=== PATIENT | female | born 1960 | race Caucasian/White ===

== ENCOUNTER 2020-09-28 04:58 | Emergency (ER) | payer OTHER, SELFPAY ==
--- NOTE | ~2020-09-28 | XR_ITS ---
EXAMINATION: XR knee RT 3V DATE: 09/28/2020 05:46 INDICATION: Right knee pain TECHNIQUE: Three views of the right knee were obtained. COMPARISON: None. FINDINGS: Alignment is normal. No fracture or osteochondral lesion. Joint spaces are normal with no e rosions. No joint effusion/synovitis. Soft tissues are unremarkable. IMPRESSION: 1. No acute osseous abnormality. Reviewed, dictated and finalized at location A.
[2020-09-28 04:59] VITALS: BP 154/94; PULSE 80; RESP 19; TEMP 36.6; O2SAT 100
[2020-09-28 05:22] VITALS: BP 136/91; PULSE 74; RESP 18; TEMP 36.8; O2SAT 98
--- NOTE | 2020-09-28 05:58 | ED.GENADULT ---
HPI - General Adult General Chief complaint: Extremity Injury, Lower Stated complaint: right knee pain and swelling Time Seen by Provider: 09/28/20 05:50 History of Present Illness HPI narrative: Patient 60-year-old female presents the emergency department with chief complaint of right knee pain. The patient reports she has been having chronic pain in her right knee over the last 2 weeks has become worse. The patient states that she has swelling in her right knee and reports that she has popping and grinding in her knee Related Data Home Medications Medication Instructions Recorded Confirmed acetaminophen 09/28/20 amoxicillin-pot clavulanate tablet 09/28/20 fluticasone propionate INTRANASAL 09/28/20 permethrin applic TOPICAL 09/28/20 Allergies Allergy/AdvReac Type Severity Reaction Status Date / Time No Known Allergies Allergy Verified 09/28/20 05:29 Review of Systems Review of Systems: Narrative: A 10 system review of systems was completed on the patient and is negative except for what is stated in the HPI. Nursing and ancillary documentation was reviewed. Exam Narrative: Exam Narrative: GENERAL: Well-appearing, well-nourished, and in no acute distress. HEAD: Normocephalic, atraumatic. EYES: PERRLA and EOMI. ENT: Nares clear, no rhinorrhea or epistaxis. Mucous membranes moist. NECK: Supple. CHEST: Clear to auscultation. No respiratory distress. HEART: Regular rate and rhythm. No murmur heard. Normal peripheral pulses. ABDOMEN: Soft, nontender, nondistended, normal active bowel sounds. EXTREMITIES: Normal range of motion. No edema. There is tenderness to palpation of the right knee SKIN: Warm, dry, no rash. NEURO: No focal deficits. Alert and oriented x3. PSYCH: Normal mood and affect. Course Vital Signs Vital signs: Vital Signs Temperature 36.6 C 09/28/20 04:59 Pulse Rate 80 09/28/20 04:59 Respiratory Rate 19 09/28/20 04:59 Blood Pressure 154/94 H 09/28/20 04:59 Pulse Oximetry 100 09/28/20 04:59 Temperature 36.8 C 09/28/20 05:22 Pulse Rate 74 09/28/20 05:22 Respiratory Rate 18 09/28/20 05:22 Blood Pressure 136/91 H 09/28/20 05:22 Pulse Oximetry 98 09/28/20 05:22 Medical Decision Making Vital Signs Vital Signs: Vital Signs Temperature 36.6 C 09/28/20 04:59 Pulse Rate 80 09/28/20 04:59 Respiratory Rate 19 09/28/20 04:59 Blood Pressure 154/94 H 09/28/20 04:59 Pulse Oximetry 100 09/28/20 04:59 Temperature 36.8 C 09/28/20 05:22 Pulse Rate 74 09/28/20 05:22 Respiratory Rate 18 09/28/20 05:22 Blood Pressure 136/91 H 09/28/20 05:22 Pulse Oximetry 98 09/28/20 05:22 Discharge Plan Discharge Clinical Impression: Internal derangement of right knee Patient Disposition: Home, Self-Care Condition: Stable Instructions: Antibiotic Form, Knee Pain (ED), Knee Immobilizer (ED) Prescriptions: New meloxicam 15 mg tablet 15 mg PO DAILY Qty: 20 RF: 0 No Action permethrin 5 % cream TOPICAL RF: 0 acetaminophen 500 mg tablet RF: 0 fluticasone propionate 50 mcg/actuation spray,suspension INTRANASAL RF: 0 amoxicillin-pot clavulanate 875-125 mg tablet RF: 0 Follow-up/Referrals: Uyen,MARLYN Montejo [Primary Care Provider] - Jose Monsalve MD [Physician] - Time of Disposition: 06:03
[2020-09-28] MEDS: MELOXICAM 7.5 MG TABLET 15 MG PO (06:36)
[2020-09-28 06:47] VITALS: BP 129/87; PULSE 92; RESP 18; O2SAT 98
--- NOTE | 2020-09-28 06:51 | PC.NURSE ---
pt refusing knee immobilizer and states I just want my medications
== END 2020-09-28 06:35 | disposition home or self-care (01) ==
PROVIDERS: Emergency Provider Emergency Medicine; PCP Physician Assistant
DX: M23.91 Unspecified internal derangement of right knee (principal)
CPT/HCPCS: 73562; 99283; A9270

== ENCOUNTER 2021-12-29 14:28 | Emergency (ER) | payer OTHER, SELFPAY ==
--- NOTE | ~2021-12-29 | CT_ITS ---
EXAMINATION: CT abdomen pelvis w con DATE: 12/29/2021 16:49 INDICATION: Low abdominal pain. TECHNIQUE: Computed tomography (CT) of the abdomen and pelvis was performed with 100 mL Omnipaque 350 intravenous contrast. Automated exposure control and iterative reconstruction technique were employe d. The dose-length product was 193.48 mGy-cm. COMPARISON: None. FINDINGS: The visualized portions of the lung bases demonstrate emphysema. There is a 4 mm nodule in left lower lobe, likely benign. There are small bilateral posterior diaphragmatic hernias containing fat. No pleural effusion. The heart size is normal. No pericardial effusion. Calcifications in the li [place] and spleen are consistent with old granulomas disc disease. There are gallstones in the gallbladd er, which is normal in size. The pancreas and adrenal glands are normal. There is cortical thinning o f the kidneys. There is diverticulosis of the colon without evidence of diverticulitis. There are no dilated loops of bowel. There are no pathologically enlarged lymph nodes. There is no free intraperit gore fluid. There is moderate lumbar spondylosis. IMPRESSION: 1. Emphysema. 2. Cholelithiasis. No evidence of acute cholecystitis. Reviewed, dictated and finalized at location B.
[2021-12-29 14:34] VITALS: BP 150/88; PULSE 85; RESP 18; TEMP 36.7; O2SAT 98
[2021-12-29 14:50] LABS: Basophils Percent Auto 0.5 % (0.2-1.2); Eosinophils Absolute Auto 0.1 K/mm3 (0-0.3); Eosinophils Percent Auto 1.2 % (0-4.4); Hematocrit 40.1 % (37.0-47.0); Hemoglobin 12.8 g/dL (12.0-15.0); Immature Granulocyte Absolute 0.05 K/mm3 (0.00-0.031); Immature Granulocyte Percent A 0.6 % (0-0.5); Lymphocytes Absolute Auto 0.91 K/mm3 (0.9-3.2); Lymphocytes Percent Auto 10.5 % (18.3-44.2); Mean Corpuscular HGB Conc 31.9 g/dl (32-36); Mean Corpuscular Hemoglobin 32.5 pg (26-34); Mean Corpuscular Volume 101.8 fl (80-100); Mean Platelet Volume 9.4 fl (7.4-10.4); Monocytes Absolute Auto 0.7 K/mm3 (0.1-0.6); Monocytes Percent Auto 7.7 % (2.6-8.5); Neutrophils Absolute Auto 6.9 K/mm3 (1.3-6.7); Neutrophils Percent Auto 79.5 % (45.5-73.1); Platelet Count Result 348 k/mm3 (150-375); Red Blood Count 3.94 M/mm3 (4.2-5.4); Red Cell Distribution Width 12.8 % (11.5-14.5); White Blood Count 8.7 K/mm3 (4.5-10.0)
[2021-12-29 14:59] LABS: Alanine Aminotransferase 7 U/L (6-35); Albumin Level 3.6 g/dL (3.5-5.1); Alkaline Phosphatase 82 U/L (38-126); Anion Gap 10 mmol/L (8-16); Aspartate Amino Transferase 16 U/L (14-36); Bilirubin,Total 0.2 mg/dL (0.2-1.3); Blood Urea Nitrogen 20 mg/dL (7-17); Calcium 9.1 mg/dL (8.4-10.2); Carbon Dioxide 32 mmol/L (22-30); Chloride 100 mmol/L (98-107); Estimated CRCL calculation 27 ml/min; Estimated Glomerular Filt Rate 33; Glucose 104 mg/dL (65-110); Lipase 30 U/L (23-300); Potassium 4.2 mmol/L (3.4-5.0); Sodium 142 mmol/L (137-145)
[2021-12-29 15:19] LABS: Add Urine Microscopic? YES; Appearance Urine Cloudy (Clear); Bilirubin Urine Negative (Negative); Blood Urine 2+ (Negative); Color Urine Yellow (Yellow); Glucose Urine UA Negative (Negative); Ketones Urine Trace mg/dL (Negative); Leukocyte Esterase Ur 1+ LEU/UL (Negative); Mucus Urine Rare /lpf; Nitrate Urine Negative (Negative); Protein Urine 1+ mg/dL (Negative); Specific Grav Ur 1.021 (1.001-1.035); Squamous Epithelial Cell Urine Occasional /hpf (Few); Urobilinogen Urine Negative mg/dL (<2.0); WBC Urine 0-3 /hpf
--- NOTE | 2021-12-29 16:13 | ED.ABDPAIN ---
HPI - Abdominal Pain General Chief Complaint: Abdominal Pain Stated Complaint: abd pain Time Seen by Provider: 12/29/21 16:12 Source: patient and RN notes reviewed Mode of arrival: ambulatory Limitations: no limitations History of Present Illness HPI narrative: Patient is 61 years old white female drove herself to the emergency room complaining of lower abdominal cramps for the last 5 days, she denies aggravating or relieving factors. The patient denies any fever, chills, nausea, vomiting. Patient was seen on December 24 in a hospital and had a diagnosis of intestinal infection and was discharged on Levaquin, Flagyl and Zofran. Patient started taking medication on December 25 and does not feel well. Related Data Home Medications Medication Instructions Recorded Confirmed acetaminophen 500 mg tablet 09/28/20 amoxicillin 875 mg-potassium tablet 09/28/20 clavulanate 125 mg tablet fluticasone propionate 50 intranasal 09/28/20 mcg/actuation nasal spray,suspension permethrin 5 % topical cream applic topical 09/28/20 Allergies Allergy/AdvReac Type Severity Reaction Status Date / Time No Known Allergies Allergy Verified 09/28/20 05:29 Review of Systems Review of Systems: All systems reviewed & are unremarkable except as noted in HPI and below Exam Narrative: General appearance: Well-developed, well-nourished Skin: Normal color Head: Normocephalic, nontraumatic Eyes: Clear conjunctiva ENT: Oropharynx normal, ears normal, nose normal Neck: Supple, nontender Chest and respiratory: Airway patent, no respiratory distress, no accessory muscle use Heart: Regular rate/rhythm Abdomen: Soft, mild diffuse lower abdominal tenderness, no guarding or rebound, no organomegaly, quiet bowel sounds Vascular: Normal peripheral pulses, normal capillary refill. Musculoskeletal: Normal range of motion, nontender back Neurologic: Alert and oriented ?3, BOX STRAPPER is normal as tested, no gross motor deficit Course Course Emergency Course: Patient presents with lower abdominal pain, has been on Levaquin, Flagyl and Zofran for the last 4 days because of intestinal infection which high likely diverticulitis. Patient reports that the pain is not getting better. CT scan today showed no diverticulitis, no acute abnormalities, white count within normal limit, patient does not have any nausea, vomiting, chills, fever. I believe patient can go home and continue her medication and to follow-up with our nuclear plant operator. Vital Signs Vital signs: Vital Signs Temperature 36.7 C 12/29/21 14:34 Pulse Rate 85 12/29/21 14:34 Respiratory Rate 18 12/29/21 14:34 Blood Pressure 150/88 H 12/29/21 14:34 Pulse Oximetry 98 12/29/21 14:34 Oxygen Delivery Room Air 12/29/21 14:34 Temperature 36.7 C 12/29/21 14:34 Pulse Rate 85 12/29/21 14:34 Respiratory Rate 18 12/29/21 14:34 Blood Pressure 150/88 H 12/29/21 14:34 Pulse Oximetry 98 12/29/21 14:34 Oxygen Delivery Room Air 12/29/21 14:34 MDM - Abdominal Pain Differential Diagnosis Differential diagnosis: Likely abdominal pain, acute appendicitis, calculus of kidney, constipation, diverticulitis and pancreatitis Lab Data Result diagrams: 12/29/21 14:40 12/29/21 14:40 Labs: Lab Results 12/29/21 12/29/21 12/29/21 Range/Units 14:40 14:40 14:54 WBC 8.7 (4.5-10.0) K/mm3 RBC 3.94 L (4.2-5.4) M/mm3 Hgb 12.8 (12.0-15.0) g/dL Hct 40.1 (37.0-47.0) % MCV 101.8 H (80-100) fl MCH 32.5 (26-34) pg MCHC 31.9 L (32-36) g/dl RDW 12.8 (11.5-14.5) % Plt Count 348 (150-375) k/mm3 MPV 9.4 (7.4-10.4) fl Immature Gr
[2021-12-29] MEDS: ONDANSETRON INJ 4 MG/2 ML VIAL IV PUSH (16:28)
[2021-12-29] MEDS: SODIUM CHLORIDE 0.9% IV 1,000 ML 999 ML IV CONT (16:28)
[2021-12-29] MEDS: HYDROmorphone HCL INJ (*CRX) 1 MG/ML SYR 0.5 MG IV PUSH (16:29)
[2021-12-29 16:35] LABS: Lactic Acid Reflex 0.9 mmol/L (0.7-2.0)
== END 2021-12-29 17:53 | disposition home or self-care (01) ==
PROVIDERS: Emergency Provider Emergency Medicine; PCP Emergency Medicine
DX: R10.30 Lower abdominal pain, unspecified (principal); J43.9 Emphysema, unspecified; K80.20 Calculus of gallbladder without cholecystitis without obstruction
CPT/HCPCS: 36415; 74177; 80053; 81001; 83605; 83690; 85025; 96361; 96374; 96375; 99284; J1170; J2405; J7030; Q9967

== ENCOUNTER 2022-08-05 12:03 | Emergency (ER) | payer OTHER, SELFPAY ==
--- NOTE | ~2022-08-05 | CT_ITS ---
EXAMINATION: CT abdomen pelvis wo con DATE: 08/05/2022 15:36 INDICATION: Abdominal pain and hematuria TECHNIQUE: Computed tomography (CT) of the abdomen and pelvis was performed without intravenous contr ast. Automated exposure control and iterative reconstruction technique were employed. The dose-length product was 206.42 mGy-cm. COMPARISON: 12/29/2021 FINDINGS: Moderate emphysema at the lung bases. Unchanged 4 mm left lower lobe nodule. Small region of mild tree-in-bud opacity anterobasilar left lower lobe consistent with endobronchial spread of disease suggests aspiration or pneumonia. Heart size is normal. Atherosclerotic coronary ar alize calcific lesion. No pericardial or pleural effusion. Several scattered hepatic and splenic calci fic lesions consistent with old granulomatous disease. Small gallstones in the partially decompressed normal bladder. Pancreas and bilateral adrenal glands are normal. Kidneys and ureters are normal wit h no urolithiasis, hydroureteronephrosis or perinephric/ureteral stranding. Moderate amount of stool scattered throughout the colon. No dilated loops of bowel to suggest obstruction. Likely tubal ligati on rings at the bilateral adnexa. Bladder and anteverted uterus are unremarkable. Meninges nonspecifi c mesenteric edema throughout the abdomen and pelvis. No abscess or free intraperitoneal gas or fluid . Moderate lumbar spondylosis. IMPRESSION: 1. Cholelithiasis without evidence of acute cholecystitis. 2. Nonspecific mild mesenteric edema throughout the abdomen and pelvis. No abscess or free intraperit gore gas or fluid. 3. Emphysema. Reviewed, dictated and finalized at location A. IMPRESSION: 1. Cholelithiasis without evidence of acute cholecystitis. 2. Nonspecific mild mesenteric edema throughout the abdomen and pelvis. No absc ess or free intraperitoneal gas or fluid. 3. Emphysema.
[2022-08-05 12:13] VITALS: BP 128/86; PULSE 96; RESP 22; TEMP 36.4; O2SAT 98
[2022-08-05 12:29] LABS: Basophils Percent Auto 0.2 % (0.2-1.2); Eosinophils Percent Auto 0.2 % (0-4.4); Hematocrit 39.6 % (37.0-47.0); Hemoglobin 12.8 g/dL (12.0-15.0); Immature Granulocyte Absolute 0.06 K/mm3 (0.00-0.031); Immature Granulocyte Percent A 0.4 % (0-0.5); Lymphocytes Absolute Auto 1.12 K/mm3 (0.9-3.2); Lymphocytes Percent Auto 8.1 % (18.3-44.2); Mean Corpuscular HGB Conc 32.3 g/dl (32-36); Mean Corpuscular Hemoglobin 32.1 pg (26-34); Mean Corpuscular Volume 99.2 fl (80-100); Mean Platelet Volume 9.6 fl (7.4-10.4); Monocytes Percent Auto 7.1 % (2.6-8.5); Neutrophils Absolute Auto 11.5 K/mm3 (1.3-6.7); Platelet Count Result 221 k/mm3 (150-375); Red Blood Count 3.99 M/mm3 (4.2-5.4); Red Cell Distribution Width 13.2 % (11.5-14.5); White Blood Count 13.8 K/mm3 (4.5-10.0)
[2022-08-05 12:32] LABS: Appearance Urine Clear (Clear); Bacteria Urine None Seen /hpf; Bilirubin Urine Negative (Negative); Blood Urine 2+ (Negative); Color Urine Yellow (Yellow); Glucose Urine UA Trace mg/dL (Negative); Ketones Urine Negative (Negative); Leukocyte Esterase Ur Negative LEU/UL (Negative); Nitrate Urine Negative (Negative); Non Pathogenic Casts 0-2; Protein Urine 1+ mg/dL (Negative); Specific Grav Ur 1.016 (1.001-1.035); Squamous Epithelial Cell Urine None seen /hpf (Few); Urobilinogen Urine 0.2 mg/dL (<2.0); WBC Urine 0-5 /hpf
[2022-08-05 12:37] LABS: Add Urine Microscopic? YES
[2022-08-05 12:44] LABS: Alanine Aminotransferase 13 U/L (6-35); Albumin Level 3.3 g/dL (3.5-5.1); Alkaline Phosphatase 65 U/L (38-126); Anion Gap 4 mmol/L (8-16); Aspartate Amino Transferase 23 U/L (14-36); Bilirubin,Total 0.3 mg/dL (0.2-1.3); Blood Urea Nitrogen 25 mg/dL (7-17); Calcium 8.3 mg/dL (8.4-10.2); Carbon Dioxide 33 mmol/L (22-30); Chloride 101 mmol/L (98-107); Estimated CRCL calculation 27 ml/min; Estimated Glomerular Filt Rate 33; Glucose 141 mg/dL (65-110); Lipase 41 U/L (23-300); Potassium 4.5 mmol/L (3.4-5.0); Sodium 138 mmol/L (137-145)
[2022-08-05 15:01] VITALS: BP 143/94; O2SAT 97
[2022-08-05 15:16] VITALS: BP 139/97; O2SAT 97
--- NOTE | 2022-08-05 15:16 | ED.ABDPAIN ---
HPI - Abdominal Pain General Chief Complaint: Abdominal Pain Stated Complaint: Abdominal Pain/diarrhea Time Seen by Provider: 08/05/22 15:01 History of Present Illness HPI narrative: 62-year-old female presented to the emergency department for evaluation of diffuse abdominal cramping for the last 4 days. Patient states she has been having some diarrhea. Patient states he is also had some blood from a hemorrhoid when she is not passing stool. Patient reports he does have a family history of colon cancer, patient's mother had colon cancer. Patient reports it has been a long time since the patient had a colonoscopy. Related Data Home Medications Medication Instructions Recorded Confirmed acetaminophen 500 mg tablet 09/28/20 amoxicillin 875 mg-potassium tablet 09/28/20 clavulanate 125 mg tablet fluticasone propionate 50 intranasal 09/28/20 mcg/actuation nasal spray,suspension permethrin 5 % topical cream applic topical 09/28/20 Allergies Allergy/AdvReac Type Severity Reaction Status Date / Time No Known Allergies Allergy Verified 08/05/22 14:44 Review of Systems Review of Systems: All systems reviewed & are unremarkable except as noted in HPI and below Exam Narrative: APPEARANCE: Well appearing, no pain, no distress, well-nourished. HEAD: normocephalic, atraumatic. EYES: PERRLA/EOMI, conjunctivae clear. NOSE: Normal no drainage NECK: Supple. No adenopathy, no masses. RESPIRATORY: Airway patent, respirations nonlabored. Clear to auscultation bilaterally, no rales, rhonchi, wheezing. CARDIOVASCULAR: Regular rate and rhythm without murmurs rubs or gallops. ABDOMINAL: Soft, nontender, nondistended, normal bowel sounds MUSCULOSKELETAL: Moves all extremities. Strength/ROM intact, No edema, No calf tenderness. NEURO: Alert. Cranial nerves II through XII intact. Grossly intact SKIN: Warm, dry. Normal Color Course Course Emergency Course: 8-year-old female presented the ED for evaluation of diffuse abdominal pain. Patient has a white count of 13.8. Hemoglobin is stable at 12.8. Patient does have chronic kidney disease and patient's creatinine is at her baseline. UA did show some evidence of blood. CT scan was ordered to further evaluate for the possibility of of ureteral calculi. X-ray shows evidence of cholelithiasis without evidence of acute cholecystitis. Nonspecific mild mesenteric edema throughout the abdomen and pelvis with no abscess or free intraperitoneal gas or fluid. Patient was updated on the results of the imaging. Patient will be started on antibiotics for the possibility of underlying infectious etiology. Patient was also encouraged to have close follow-up with GI to schedule her colonoscopy. All questions concerns were addressed and patient was well-appearing at time of discharge. Vital Signs Vital signs: Vital Signs Temperature 97.5 F L 08/05/22 12:13 Pulse Rate 96 08/05/22 12:13 Respiratory Rate 22 H 08/05/22 12:13 Blood Pressure 128/86 08/05/22 12:13 Pulse Oximetry 98 08/05/22 12:13 Temperature 97.8 F 08/05/22 16:30 Pulse Rate 89 08/05/22 16:30 Respiratory Rate 16 08/05/22 16:30 Blood Pressure 140/88 08/05/22 16:30 Pulse Oximetry 100 08/05/22 16:30 MDM - Abdominal Pain Differential Diagnosis Differential diagnosis: Likely abdominal pain, acute appendicitis, constipation, diverticulitis, gastroenteritis, pancreatitis and small bowel obstruction Lab Data Attestation: I reviewed the patient's lab results. 08/05/22 12:17 08/05/22 12:17 Labs: Lab Results 08/05/22 08/05/22 Range/Units 12:17 12:20 WBC 13.8 H (4.5-10.0) K/mm3 RBC 3.99 L (4.2-5.4) M/mm3 Hgb 12.8 (12.0-15.0) g/dL Hct 39.6 (37.0-47.0) % MCV 99.2 (80-100) fl MCH 32.1 (26-34) pg MCHC 32.3 (32-36) g/dl RDW 13.2 (11.5-14.5) % Plt Count 221 (150-375) k/mm3 MPV 9.6 (7.4-10.4) fl Immature Gran % (Auto)
[2022-08-05 15:17] VITALS: O2SAT 97
[2022-08-05] MEDS: HYDROmorphone HCL INJ (*CRX) 1 MG/ML SYR 0.5 MG IV PUSH (15:22)
[2022-08-05] MEDS: SODIUM CHLORIDE 0.9% IV 1,000 ML 999 ML IV CONT (15:23)
[2022-08-05 15:35] VITALS: PULSE 77; RESP 18; O2SAT 100
[2022-08-05 16:30] VITALS: BP 140/88; PULSE 89; RESP 16; TEMP 36.6; O2SAT 100
[2022-08-05] MEDS: AMOXICILLIN/CLAVULANATE K 875-125 MG TAB 1 TABLET PO (16:45)
== END 2022-08-05 17:00 | disposition home or self-care (01) ==
PROVIDERS: Emergency Provider Emergency Medicine; PCP Emergency Medicine
DX: K52.9 Noninfective gastroenteritis and colitis, unspecified (principal); K80.20 Calculus of gallbladder without cholecystitis without obstruction; J43.9 Emphysema, unspecified; R91.8 Other nonspecific abnormal finding of lung field
CPT/HCPCS: 36415; 74176; 80053; 81001; 83690; 85025; 96361; 96374; 99284; A9270; J1170; J7030

== ENCOUNTER 2022-08-10 03:34 | Emergency (ER) | payer OTHER, SELFPAY ==
--- NOTE | ~2022-08-10 | XR_ITS ---
EXAMINATION: XR knee LT 3V DATE: 08/10/2022 04:22 INDICATION: Left knee pain. Swelling. TECHNIQUE: 3 views of left knee were obtained. COMPARISON: None. FINDINGS: There is a nondisplaced fracture of lateral tibial plateau. Joint spaces are normal. There is a large knee joint effusion. IMPRESSION: 1. Nondisplaced fracture of lateral tibial plateau. 2. Large knee joint effusion. Reviewed, dictated and finalized at location A.
[2022-08-10 03:38] VITALS: BP 122/77; PULSE 83; RESP 18; TEMP 36.1; O2SAT 97
--- NOTE | 2022-08-10 03:54 | ED.GENADULT ---
HPI - General Adult General Chief complaint: Extremity Injury, Lower <Elijah Parmar MD - Last Filed: 08/11/22 21:11> Stated complaint: fell and twisted left knee <Elijah Parmar MD - Last Filed: 08/11/22 21:11> Time Seen by Provider: 08/10/22 03:35 <Elijah Parmar MD - Last Filed: 08/11/22 21:11> History of Present Illness HPI narrative: 62-year-old female presents to the emergency department for evaluation of left knee pain. Patient states that she fell down some steps approximately 2 and half hours ago. Patient denies any other pain or injury but is complaining of left knee pain. Patient does have a left knee effusion. <Elijah Parmar MD - Last Filed: 08/11/22 21:11> Related Data Home medications: Home Medications Medication Instructions Recorded Confirmed acetaminophen 500 mg tablet 09/28/20 amoxicillin 875 mg-potassium tablet 09/28/20 clavulanate 125 mg tablet fluticasone propionate 50 intranasal 09/28/20 mcg/actuation nasal spray,suspension permethrin 5 % topical cream applic topical 09/28/20 <Elijah Parmar MD - Last Filed: 08/11/22 21:11> Allergies/adverse reactions: Allergies Allergy/AdvReac Type Severity Reaction Status Date / Time No Known Allergies Allergy Verified 08/05/22 14:44 <Elijah Parmar MD - Last Filed: 08/11/22 21:11> Review of Systems Review of Systems: All systems reviewed & are unremarkable except as noted in HPI and below <Elijah Parmar MD - Last Filed: 08/11/22 21:11> Exam Narrative: APPEARANCE: Well appearing, no pain, no distress, well-nourished. HEAD: normocephalic, atraumatic. EYES: PERRLA/EOMI, conjunctivae clear. NOSE: Normal no drainage EARS:TMS clear with good light reflex. THROAT: Pharynx clear, no exudate. NECK: Supple. No adenopathy, no masses. CARDIOVASCULAR: Regular rate and rhythm without murmurs rubs or gallops. ABDOMINAL: Soft, nontender, nondistended, normal bowel sounds MUSCULOSKELETAL: Left knee pain left knee effusion NEURO: Alert. Cranial nerves II through XII intact. SKIN: Warm, dry. Normal Color <Elijah Parmar MD - Last Filed: 08/11/22 21:11> Course Course Emergency Course: 62-year-old female presented to the ED for evaluation of left knee pain. X-ray shows no acute fracture or dislocation. Patient was provided a knee immobilizer and crutches for limited weightbearing. Patient was encouraged to take Tylenol and ibuprofen for pain control. Patient was also encouraged to have close follow-up with her primary care physician. All questions and concerns were addressed <Elijah Parmar MD - Last Filed: 08/11/22 21:11> Vital Signs Vital signs: Vital Signs Temperature 97.0 F L 08/10/22 03:38 Pulse Rate 83 08/10/22 03:38 Respiratory Rate 18 08/10/22 03:38 Blood Pressure 122/77 08/10/22 03:38 Pulse Oximetry 97 08/10/22 03:38 Temperature 97.7 F 08/10/22 04:45 Pulse Rate 80 08/10/22 04:45 Respiratory Rate 18 08/10/22 04:45 Blood Pressure 115/92 H 08/10/22 04:45 Pulse Oximetry 97 08/10/22 04:45 <Elijah Parmar MD - Last Filed: 08/11/22 21:11> Vital Signs Temperature 97.0 F L 08/10/22 03:38 Pulse Rate 83 08/10/22 03:38 Respiratory Rate 18 08/10/22 03:38 Blood Pressure 122/77 08/10/22 03:38 Pulse Oximetry 97 08/10/22 03:38 Temperature 97.7 F 08/10/22 04:45 Pulse Rate 80 08/10/22 04:45 Respiratory Rate 18 08/10/22 04:45 Blood Pressure 115/92 H 08/10/22 04:45 Pulse Oximetry 97 08/10/22 04:45 <Corey Goldsmith MD - Last Filed: 08/10/22 08:39> Medical Decision Making MDM Narrative Medical decision making narrative: Left knee x-ray was read by Dr. Yepez as lateral tibial plateau fracture I tried to get hold of the patient on [phone] and the phone is out of service. I tried to call her daughter/Audrey at [phone], voice box is full cannot accept message. <Corey Goldsmith,
[2022-08-10 04:05] VITALS: BP 102/68; PULSE 82; RESP 18; O2SAT 95
[2022-08-10] MEDS: KETOROLAC 30 MG/ML VIAL (*BKC) IM (04:31)
[2022-08-10 04:45] VITALS: BP 115/92; PULSE 80; RESP 18; TEMP 36.5; O2SAT 97
== END 2022-08-10 04:46 | disposition home or self-care (01) ==
PROVIDERS: Emergency Provider Emergency Medicine; PCP Emergency Medicine
DX: S82.145A Nondisplaced bicondylar fracture of left tibia, initial encounter for closed fracture (principal); W10.9XXA Fall (on) (from) unspecified stairs and steps, initial encounter
CPT/HCPCS: 73562; 96372; 99283; J1885